=== PATIENT | female | born 1995 | race Caucasian/White ===

== ENCOUNTER 2017-09-29 21:59 | Emergency (ER) | payer OTHER ==
--- NOTE | 2017-09-29 22:18 | PDOC ---
History of Present Illness - General Stated Complaint: INJURY Time Seen by Provider: 09/29/17 22:18 History Source: Patient Exam Limitations: No Limitations - History of Present Illness Initial Comments: 09/29/17 22:46 Patient is a 22-year-old female with no past medical history who presents to the emergency department today after her right knee dislocated at work. Patient states that she was walking and turned suddenly when her patella dislocated laterally. She states that she called 911 and the hand edge bander were able to reduce her patella. She states that she doesn't have any pain in her knee at this time. She states that her knee is usually wax. Denies fevers, chills, numbness and tingling to the extremity, weakness of the extremity. Past History - Travel Traveled outside of the country in the last 30 days: No Close contact w/someone who was outside of country & ill: No - Past Medical History Allergies/Adverse Reactions: Allergies Allergy/AdvReac Type Severity Reaction Status Date / Time No Known Allergies Allergy Verified 09/29/17 22:41 Home Medications: Ambulatory Orders NK [No Known Home Medication] 09/29/17 Review of Systems - Review of Systems Able to Perform ROS?: Yes Comments:: 09/29/17 22:37 CONSTITUTIONAL: Absent: fever, chills, diaphoresis, generalized weakness, malaise, loss of appetite HEENT: Absent: rhinorrhea, nasal congestion, throat pain, throat swelling, difficulty swallowing, mouth swelling, ear pain, eye pain, visual Changes CARDIOVASCULAR: Absent: chest pain, loss of consciousness, palpitations, irregular heart rate, peripheral edema RESPIRATORY: Absent: cough, shortness of breath, dyspnea with exertion, orthopnea, wheezing, stridor, hemoptysis GASTROINTESTINAL: Absent: abdominal pain, abdominal distension, nausea, vomiting, diarrhea, constipation, melena, hematochezia GENITOURINARY: Absent: dysuria, frequency, urgency, hesitancy, hematuria, flank pain, genital pain MUSCULOSKELETAL: Present: R knee pain Absent: myalgia, arthralgia, joint swelling SKIN: Absent: rash, itching, pallor HEMATOLOGIC/IMMUNOLOGIC: Absent: easy bleeding, easy bruising, lymphadenopathy, frequent infections ENDOCRINE: Absent: unexplained weight gain, unexplained weight loss, heat intolerance, cold intolerance NEUROLOGIC: Absent: headache, focal weakness or paresthesias, dizziness, unsteady gait, seizure, mental status changes, bladder or bowel incontinence PSYCHIATRIC: Absent: anxiety, depression, suicidal or homicidal ideation, hallucinations. Is the patient limited Kiswahili proficient: No *Physical Exam - Physical Exam Comments: 09/29/17 22:38 GENERAL: Well developed, well nourished. Awake and alert. No acute distress. HEENT: Normocephalic, atraumatic. PERRLA, EOMI. No conjunctival pallor. Sclera are non- icteric. Moist mucous membranes. Oropharynx is clear. NECK: Supple. Full ROM. No JVD. Carotid pulses 2+ and symmetric, without bruits. No thyromegaly. No lymphadenopathy. CARDIOVASCULAR: Regular rate and rhythm. No murmurs, rubs, or gallops. Distal pulses are 2+ and symmetric. PULMONARY: No evidence of respiratory distress. Lungs clear to auscultation bilaterally. No wheezing, rales or rhonchi. ABDOMINAL: Soft. Non-tender. Non-distended. No rebound or guarding. No organomegaly. Normoactive bowel sounds. MUSCULOSKELETAL (+) Laxity of the R patella. Knee is currently in correct anatomical position. ( -) anterior/posterior draw testing, valgus/varus stressing. Normal range of motion at all joints. No bony deformities or tenderness. No CVA tenderness. EXTREMITIES: No cyanosis. No clubbing. No edema. No calf tenderness. SKIN: Warm and dry. Normal capillary refill. No rashes. No jaundice. NEUROLOGICAL: Alert, awake, appropriate. Cranial nerves 2-12 intact. No deficits to light touch and temperature in face, upper extremities and lower extremities. No motor deficits in the in face, upper extremities and lower extremities. Normoreflexic in the upper and lower extremities. Normal speech. Toes are down- going bilaterally. Gait is normal without ataxia. PSYCHIATRIC: Cooperative. Good eye contact. Appropriate mood and affect. Medical Decision Making - Medical Decision Making 09/29/17 22:48 Patient is a 22-year-old female who presents to the emergency department today after having a right knee patellar dislocation at work. Her knee is currently reduced and in anatomical position. No pain at this time. Patient is neurologically intact. PMS also intact to the right leg. We'll obtain x-ray at this time. Reevaluate. 09/30/17 01:22 X-ray is negative for fx. Will dc home at this time with knee immobilizer, crutches, and ortho follow up. Return precautions given. Pt understands all dc instructions and all questions were answered. *DC/Admit/Observation/Transfer Diagnosis at time of Disposition: Knee pain, right Qualifiers: Chronicity: acute Qualified Code(s): M25.561 - Pain in right knee - Discharge Dispostion Disposition: HOME Condition at time of disposition: Good Decision to Admit order: No - Referrals Referrals: Gunnar Suero MD [Staff Physician] - - Patient Instructions Printed Discharge Instructions: DI for Patellar Dislocation Additional Instructions: Your patella (knee cap) was dislocated tonight. It went back into place on its own. Your x-ray shows no evidence of fracture. Please wear the knee immobilizer and use crutches until you're able see orthopedics. And orthopedics referral has been given 2. Please follow-up with the next 2-3 days. You may take Tylenol or Motrin as needed for pain. Please follow the general education professor's instructions. Return to the emergency department. Numbness and tingling to the extremity, weakness, repeat dislocation, or give any changes in your symptoms. - Post Discharge Activity Forms/Work/School Notes: Back to Work
--- NOTE | 2017-09-29 22:37 | PDOC ---
Medical Decision Making - Medical Decision Making 09/29/17 22:36 Case discussed with LIYAH Stringer. Plan as per Siomara. *DC/Admit/Observation/Transfer Diagnosis at time of Disposition: Knee pain, right - Discharge Dispostion Disposition: HOME Condition at time of disposition: Good - Referrals Referrals: Gunnar Suero MD [Staff Physician] - - Patient Instructions Printed Discharge Instructions: DI for Patellar Dislocation Additional Instructions: Your patella (knee cap) was dislocated tonight. It went back into place on its own. Your x-ray shows no evidence of fracture. Please wear the knee immobilizer and use crutches until you're able see orthopedics. And orthopedics referral has been given 2. Please follow-up with the next 2-3 days. You may take Tylenol or Motrin as needed for pain. Please follow the pressure tester's instructions. Return to the emergency department. Numbness and tingling to the extremity, weakness, repeat dislocation, or give any changes in your symptoms. - Post Discharge Activity Forms/Work/School Notes: Back to Work
[2017-09-29 22:42] VITALS: BP 110/70; PULSE 72; TEMP 98.1
== END 2017-09-30 02:39 | disposition home or self-care (01) ==
LOC: JER 21:59
DX: M25.561 Pain in right knee (principal); X50.1XXA Overexertion from prolonged static or awkward postures, initial encounter; Y93.89 Activity, other specified; Y92.89 Other specified places as the place of occurrence of the external cause; Y99.0 Civilian activity done for income or pay
CPT/HCPCS: 73560-TC-RT-FY; 99281-25